=== PATIENT | female | born 1970 | race African-American/Black ===

== ENCOUNTER 2016-12-08 10:48 | Emergency (ER) | payer BC ==
[~2016-12-08 10:48] MED LIST: ANADS PO; B121000P IM; CLARIT10 PO; COZ25 PO; EXCEDRIN MIGRA1 EAC1 PO; FERROUS SULF325 M1 PO; FLAG500TAB PO; JANUVIA100 MG PO; LIPITOR20 PO; QVAR80 MCG INH; VITAMIN D1000 UNI1 PO; X5 PO
[2016-12-08 11:52] LABS: ASCORBIC ACID (UR NOT ORDER) NEG (NEG); BILIRUBIN, URINE NEGATIVE (NEG); ER URINALYSIS TAT 0 Hrs 09 Mins; KETONE, URINE NEGATIVE (NEG); LEUKOCYTE ESTERASE(NOT OR NEG (NEG); NITRITE (URINE) NEG (NEG); WBC (NOT ORDERED) (RFLEX) 1 (0-5)
[2016-12-08 12:05] LABS: A/G RATIO 0.7 (0.7-1.9); ALBUMIN 3.2 G/DL (3.5-5.0); ALKALINE PHOSPHATASE 74 U/L (45-117); BUN (BLOOD UREA NITROGEN) 7 MG/DL (6-23); CALCIUM, SERUM 8.5 MG/DL (8.5-10.4); CHLORIDE, SERUM 106 MMOL/L (96-112); CO2 (CARBON DIOXIDE) 24 MMOL/L (24-34); CREATININE 0.58 MG/DL (0.55-1.02); GFR AFRICAN AMERICAN 129 ML/MIN (>=60); GFR NON AFRICAN AMERICAN 111 ML/MIN (>=60); GLOBULIN 4.3 G/DL (2.5-4.1); SGPT(ALT) 20 U/L (5-65); SODIUM, SERUM 140 MMOL/L (135-148); TOTAL BILIRUBIN 0.5 MG/DL (0-1.2); TOTAL PROTEIN 7.5 G/DL (6.0-8.5)
[2016-12-08 12:06] LABS: GLUCOSE, SERUM 126 MG/DL (60-99); SGOT(AST) 25 U/L (5-40)
[2016-12-08 12:07] LABS: POTASSIUM, SERUM 4.3 MMOL/L (3.5-5.3)
[2016-12-08 14:10] LABS: BASOPHILS 0.4 %; BASOPHILS ABSOLUTE 0.03 10/3/uL (0.0-0.16); EOSINOPHILS 4.2 %; EOSINOPHILS ABSOLUTE 0.34 10/3/uL (0.0-0.53); HEMATOCRIT 35.2 % (36.0-48.0); HEMOGLOBIN 11.2 g/dL (12.0-16.0); IMMATURE GRANULOCYTES 0.2 %; IMMATURE GRANULOCYTES ABSOLUTE 0.02 10/3/uL (0.0-0.11); LYMPHOCYTES 40.9 %; MEAN CORPUS HGB CONC 31.8 g/dL (32.0-36.0); MEAN CORPUSCULAR VOLUME 72.1 fL (80-100); MEAN PLATELET VOLUME 9.7 fL (9.2-13.0); MONOCYTES 4.2 %; MONOCYTES ABSOLUTE 0.34 10/3/uL (0.21-1.20); NEUTROPHILS 50.1 %; NEUTROPHILS ABSOLUTE 4.04 10/3/uL (2.02-8.40); PLATELET COUNT 257 10/3/uL (150-400); RBC DISTRIBUTION WIDTH 15.8 % (12.0-16.0); RED CELL COUNT 4.88 10/6/uL (4.0-5.6); WHITE BLOOD CELLS 8.1 10/3/uL (4.5-10.5)
[2016-12-08 14:11] LABS: MANUAL DIFF NO %
[2017-05-03] MEDS ORDERED: TRULICITY0.75 MG/0. SQ (15:38)
[2017-05-03] MEDS ORDERED: PROBIOTIC PO (15:39)
[2017-05-03] MEDS ORDERED: FESO4 PO (15:52)
[2017-05-03] MEDS ORDERED: ANADS PO (15:57)
== END 2016-12-08 14:25 | disposition home or self-care (01) ==
LOC: ER 10:48
PROVIDERS: Nurse Practitioner
DX: K59.00 Constipation, unspecified (principal); I10 Essential (primary) hypertension; Z88.0 Allergy status to penicillin; Z88.5 Allergy status to narcotic agent; Z79.899 Other long term (current) drug therapy
CPT/HCPCS: 74176; 80053; 81001; 83690; 84703; 85025; 96374; 99284; J2405